=== PATIENT | female | born 1980 | race Caucasian/White ===

== ENCOUNTER 2025-06-19 06:53 | Outpatient (OUT) | payer OTHER, SELFPAY ==
--- OUTSIDE RECORDS SUMMARY | 2025-06-19 06:57 | XMS_ITS | Clinical Summary ---
Author Organization [facility] Address [address] [place] [address] Care Team Providers Care Production Line Worker Name Role Phone Ariel Beck' LADY Primary Care Provider [phone] Allergies Active AllergyReactionsCriticalityNoted DateCommentsErythromycinHives,Nausea and Uuzgekcr77/20/2015 Other Reaction(s): Unknown Medications MedicationSigDispense QuantityRefillsLast FilledStart DateEnd DateStatus MULTIPLE VITAMINS PO Take 1 tablet by mouth daily.Active Levonorgestrel 20 MCG/DAY 1 Intra Uterine Device by Intrauterine route once.Active Active Problems ProblemNoted DateDiagnosed DateEnchondroma of bone of hand, right01/13/2024 Finger stiffness, right01/13/2024Obesity (BMI 30.0-34.9)12/23/2023 Encounters DateTypeDepartmentCare AyolGlmtszcjtho55/17/2025Orders Only Genetics [address] [place] [address] Giulia Mccord, B[place] from Last 3 Months Family History Medical HistoryRelationNameCommentsDiabetesFatherJoe WoodType 2DiabetesMother Nelli WoodType 2Arthritis - RheumatoidOtherHeart Disease - OtherOtherRelation NameStatusCommentsFatherJoe WoodMotherEdith WoodOther Social History Tobacco UseTypesPacks/DayYears UsedDateSmoking Tobacco: NeverPassive Smoke Exposure: NeverSmokeless Tobacco: Never Tobacco Cessation:Counseling Given: Not Answered Alcohol UseStandard Drinks/WeekCommentsNever0 (1 standard drink = 0.6 oz pure alcohol)rarelyDepressionAnswerDate RecordedPHQ-9 Total Score (Interpretation of Total Score 1-4 = Minimal depression; 5-9 = Mild depression; 10-14 = Moderate depression; 15-19 = Moderately severe depression)Comments UnknownSex and Gender InformationValueDate RecordedSex Assigned at BirthNot on fileLegal DrxYzohyw97/06/2017 7:48 PM ESTGender VyzrurwpGtzcgt50/24/2024 6:55 PM ESTSexual TfurphenhfgXvcplufq28/24/2024 6:55 PM EST Last Filed Vital Signs Vital SignReadingTime TakenCommentsBlood Thxfdogb229/56012/21/2024 9:23 AM EDT Aveum449112/21/2024 9:23 AM PHVZcphkjqrhvm01.4 ??C (97.6 ??F)12/21/2024 9:23 AM EDTRespiratory Gcbk194912/21/2024 9:23 AM EDTOxygen Awlkxwkteg64%12/21/2024 9:23 AM EDTInhaled Oxygen Concentration--Wycscw32 kg (216 lb 1.6 oz)12/21/2024 9:23 AM FYWVgoarj802.1 cm (5' 5 )10/25/2024 9:57 AM EDTBody Mass Index35.9610/25/2024 9:57 AM EDT Plan of Treatment DateTypeDepartmentCare Team (Latest Contact Info)Gxcthtoyzin64/29/2026 9:20 AM EDTAppointment Imaging at [facility] [address] [place] [address] Rommel Silva MD [address] [place] [address] 12/20/2025 9:45 AM EDTOffice Visit Department of Orthopaedics at [facility] [address] [place] [address] Rommel Silva MD [address] [place] [address] Health MaintenanceDue DateLast DoneCommentsHEPATITIS C VIRUS KNATIKGMT91/08/1982 AMMTWMA72 1981HIV SCREENING HQZNGGWPUV16/08/1997HEP B VACCINE (1 of 3 - 19+ 3-dose series)2000PNEUMOCOCCAL VACCINE SERIES (1 of 2 - PCV)2000TDAP (ADULT)2000CERVICAL CANCER SCREENING HZDDDJSXIQ78/08/2003HPV VACCINE (1 - 3-dose SCDM series)2008LIPID SQLZJQMJJ86/08/2022MAMMOGRAM SCREENING DRPXUFFBYP33/07/006973/01/2024, 01/17/2023, 2COVID-19 VACCINE ( season)501/, 01/20/2021, 12/23/2020INFLUENZA VACCINE (#1)2025 Medical Devices ImplantedTypeAreaManufacturerDevice IdentifierShelf Expiration DateModel / Serial / LotHemostatic Bone 16g Montage Multi-Pack - [id number] Implanted:Qty: 1 on 12/28/2023 by Rommel Silva MD at ZPSQEGIIEN04/01/2026 [id number] Insurance Advance Directives For more information, please contact: [phone] (7:30 AM - 6PM [facility], Tuesday-Tuesday) * Full Code (Latest Code Status on File) Date ActivatedDate InactivatedComments12/28/2023 5:56 AM Care Teams Team MemberRelationshipSpecialtyStart DateEnd Date Nasreen Beck CNP [address] [place] [address] [address] [place] [address] PCP - GeneralCertified Nurse Practitioner12/23/23
--- OUTSIDE RECORDS SUMMARY | 2025-06-19 06:57 | XMS_ITS | Clinical Summary ---
Author Organization [facility] Address [address], [address] [place] [address] Care Team Providers Care Hydraulic Modeling Engineer Name Role Phone Ariel Beck EDILIA - VEGETABLE GROWER Primary Care Pr ovider Allergies Active AllergyReactionsCriticalityNoted XxadPntayzmdSxewtxvtwizqPrcez56/20/2015 Medications MedicationSigDispense QuantityRefillsLast FilledStart DateEnd DateStatus Multiple Vitamins-Minerals (MULTIVITAMIN PO) Take 1 tablet by mouth dailyActive levonorgestrel (MIRENA) IUD 52 mg 1 each by IntraUTERine route onceActive Active Problems Patient Care Coordination No te Formatting of this note migh t be different from the original. desires to continue mirena when due for a new one, likes amenorrhea/ cycle control, inserted 08/15/18 ProblemNoted DateDiagnosed DateChronic cqcvejnpkcw42/04/2022 Encounters DateTypeDepartmentCare BmudRkrgaisdnnh83/07/2025 10:15 AM EDTOffice Visit [facility] Part of [address] [place] [address] Letty Treadwell, EDILIA - CNM Encounter for annual routine gynecological examination (Primary Dx); Screening mammogram, encounter forfrom Last 3 Months Immunizations ImmunizationAdministration DatesNext DueCOVID-19, Inactive, MODERNA BLUE border, Primary or Immunocompromised, (age 12y+)08/14/2021,01/20/2021,12/23/2020 Influenza Vaccine, unspecified srqhoksdgkb03/04/2017 Family History Medical HistoryRelationNameCommentsDiabetesFatherHeart AttackMaternal GrandfatherHypertensionMaternal GrandmotherDiabetesMotherOtherOtherMat. second cousin breast cnacer. No family h/o ovarian cancer or DVT.Heart AttackPaternal GrandfatherRelationNameStatusCommentsFatherAliveMaternal GrandfatherDeceased Maternal GrandmotherDeceasedMotherAliveOtherOtherPaternal GrandfatherDeceased Paternal GrandmotherDeceasedSisterAlive Social History Tobacco UseTypesPacks/DayYears UsedDateSmoking Tobacco: FormerSmokeless Tobacco: Never Tobacco Cessation:Counseling Given: Not Answered Alcohol UseStandard Drinks/WeekCommentsNot Currently0 (1 standard drink = 0.6 oz pure alcohol)4 times a year sociallyHumiliation, Afraid, Rape, and Kick questionnaireAnswerDate RecordedWithin the last year, have you been afraid of your partner or ex-partner?No10/25/2023Within the last year, have you been humiliated or emotionally abused in other ways by your partner or ex-partner?No 10/25/2023Within the last year, have you been kicked, hit, slapped, or otherwise physically hurt by your partner or ex-partner?No10/25/2023Within the last year, have you been raped or forced to have any kind of sexual activity by your part ner or ex-partner?No10/25/2023Social Connection and Isolation PanelAnswerDate RecordedIn a typical week, how many times do you talk on the phone with family, friends, or neighbors?More than three times a week10/25/2023How often do you get together with friends or relatives?Three times a week10/25/2023How often do you attend mormonism or buddhist services?Never10/25/2023o you belong to any clubs or organizations such as mormonism groups, unions, fraternal or athletic groups, or school groups?Yes10/25/2023How often do you attend meetings of the clubs or organizations you belong to?More than 4 times per year10/25/2023re you , , , , never , or living with a partner? 10/25/2023UDIT-CAnswerDate RecordedQ1: How often do you have a drink containing alcohol?Monthly or less10/25/2023Q2: How many drinks containing alcohol do you have on a typical day when you are drinking?1 or Q3: How often do you have six or more drinks on one occasion?Never10/25/2023Overall Financial Resource Strain (CARDIA)AnswerDate RecordedHow hard is it for you to pay for the very basics like food, housing, medical care, and heating?Not hard at all 10/25/2023HQ-2AnswerDate RecordedPHQ-9 Total Bhxcw153Finshriners [facility] [place] of Occupational Health - Occupational Stress QuestionnaireAnswerDate RecordedDo you feel stress - tense, restless, nervous, or anxious, or unable to sleep at night because yourmind is troubled all the time - these days?Not at all 10/25/2023Exercise Vital SignAnswerDate RecordedOn average, how many days per week do you engage in moderate to strenuous exercise (like a brisk walk)?3 days 10/25/2023On average, how many minutes do you engage in exercise at this level? 50 min10/25/2023RAPARE - TransportationAnswerDate RecordedIn the past 12 months, has lack of transportation kept you from medical appointments or from getting medications?No10/25/2023In the past 12 months, has lack of transportation kept you from meetings, work, or from getting things needed for daily living?No10/25/2023Housing Stability Vital SignAnswerDate RecordedIn the last 12 months, was there a time when you were not able to pay the mortgage or rent on time?No10/25/2023Number of Places Lived in the Last YearNot on file 10/25/2023In the last 12 months, was there a time when you did not have a steady place to sleep or slept in ashelter (including now)?No10/25/2023Housing Stability Vital SignAnswerDate RecordedIn the last 12 months, was there a time when you were not able to pay the mortgage or rent on time?No04/30/2025In the past 12 months, how many times have you moved where you were living? At any time in the past 12 months, were you homeless or living in a alf (including now)?No04/30/2025Hunger Vital SignAnswerDate RecordedWithin the past 12 months, you worried that your food would run out before you got the money to buymore.Never true04/30/2025Within the past 12 months, the food you bought just didn't last and you didn't have money to get more.Never true04/30/2025PRAPARE - TransportationAnswerDate RecordedIn the past 12 months, has lack of transportation kept you from medical appointments or from getting medications?No 04/30/2025In the past 12 months, has lack of transportation kept you from meetings, work, or from getting things needed for daily living?No04/30/2025HC UtilitiesAnswerDate RecordedIn the past 12 months has the expresscoin, gas, oil, or water [employer] threatened to shut off services in your home?04/30/2025 Interpersonal Safety Domain Source: IP Abuse ScreeningAnswerDate RecordedRead- Only, Retired: Physical RfwveYvdqte67/28/2024ead-Only, Retired: Verbal Abuse Psssrm2711/20/2023ead-Only, Retired: Emotional oucabHfbygd95/28/2024ead-Only, Retired: Financial PrllfRmohtr07/28/2024ead-Only, Retired: Sexual abuseDenies 11/20/2023CommentsNoSex and Gender InformationValueDate RecordedSex Assigned at ZfyooGcukrc22/02/2022 9:08 AM EDTLegal FlsMdezss57/10/2013 12:36 PM ESTGender LeibejupOcgeyk22/02/2022 9:08 AM EDTSexual OrientationStraight 11/23/2021 9:08 AM EDT Last Filed Vital Signs Vital SignReadingTime TakenCommentsBlood Mbwzlgoc169/7804/30/2025 10:18 AM EDT Ugyvk9098 3:13 PM DXIQftingmvxai73.9 ??C (98.5 ??F)11/20/2023 6:46 PM EDTRespiratory Jkno568211/20/2023 6:46 PM EDTOxygen Zltjrvjezq04%11/20/2023 6:46 PM EDTInhaled Oxygen Concentration--Yhjrka79.2 kg (212 lb)04/30/2025 10:18 AM MYHGkwktz597.1 cm (5' 5 )04/30/2025 10:18 AM EDTBody Mass Index35.281 10:18 AM EDT Plan of Treatment DateTypeDepartmentCare Team (Latest Contact Info)Iozxwojhtwj67/18/2025 8:30 AM ESTAppointment [facility] [address] [id number] Routine-Lft Msg 10:45 AM EDTOffice Visit [facility] Part of [facility] [address] [place] [id number] Letty Treadwell, EDILIA - TRACEM [address] [facility] [address] [facility] [address] [place] [address] AnnualHealth MaintenanceDue DateLast DoneCommentsHepatitis C oowrtm1511/30/1999 DTaP/Tdap/Td vaccine (1 - Tdap)2000Hepatitis B vaccine (1 of 3 - 19+ 3- dose series)2000HPV (without or with Pap)11/30/2011Flu vaccine (#1) COVID-19 Vaccine ( season)501/, 01/20/2021, 1Breast cancer /01/2024, 01/17/2023, 12/23/2021, Additional history existsDepression Ekczmm48610/01/2025, 5Cervical cancer pocfpb8604/24/2027Pap smear/07/2023, 04/08/2021, 04/03/2020, Additional history pyzhowNthdvu37/06/556151/12/2023, 10/02/2022, 05/21/2021, Additional history existsHIV abyetgGwsrviwgh96/18/2008 A1C test (Diabetic or Prediabetic)Shgsicoxgekc50/06/2024, 10/02/2022, 05/21/2021, Additional history existsHPV vaccine (No Doses Required)Completed Hepatitis A vaccineAged OutNo longer eligible based on patient's age to complete this topicHib vaccineAged OutNo longer eligible based on patient's age to complete this topicMeningococcal (ACWY) vaccineAged OutNo longer eligible based on patient's age to complete this topicMeningococcal B vaccineAged OutNo longer eligible based on patient's age to complete this topicPneumococcal 0-49 years VaccineAged OutNo longer eligible based on patient's age to complete this topic Polio vaccineAged OutNo longer eligible based on patient's age to complete this topicVaricella vaccineDiscontinued Procedures Procedure NamePriorityDate/TimeAssociated DiagnosisCommentsGYN CYTOLOGYRoutine 04/24/2024 12:00 AM EDT RADHA LISA DIGITAL SCREEN QOZSHBTEGFlnmnnh64/07/2024 5:36 PM EDT Screening mammogram for high-risk patient LIPID PANEL W/ REFLEX DIRECT DOYHexctrl48/28/2021 9:34 AM EDT HEMOGLOBIN V3TVthtjsv30/28/2021 9:34 AM EDT from Last 3 Months or Most Recently Relevant to Health Maintenance Results * DEMURRAGE WORKER Cytology (04/24/2024 12:00 AM EDT)ComponentValueRef RangeTest Method Analysis TimePerformed AtPathologist SignatureCytology ReportPath Number: [id number] DIAGNOSIS Imaged ThinPrep Pap - Cervical (1 monolayer slide): Specimen Adequacy: ? Satisfactory for evaluation. ? - Endocervical/transformation zone component present. Descriptive Diagnosis: ? Negative for intraepithelial lesion or malignancy. Fungal organisms morphologically consistent with Sloane species. Reactive cellular changes. Cytotech Screener: ??EY Electronically Signed Out ? Jorge Lopes. /05/03/2024 Source of Specimen: A: Imaged ThinPrep Pap - Cervical (1 monolayer slide) HPV Reflex?......................HPV if ASCUS Clinical History Implant Z12.4 Encounter for screening for malignant neoplasm of cervix Processing Lab: [address] [address] Interpretation performed at [address] [address] This Pap Test has been evaluated with the assistance of the ThinPrep Pap Test Imaging System. The Pap smear is a screening test primarily for squamous epithelial lesions, which is subject to both false negative and false positive results. Your patient should be reminded to consult you immediately if she experiences any suspicious signs or symptoms, regardless of her Pap smear result. GYNECOLOGIC CYTOLOGY REPORT Patient Name: VALERIO TURNER [facility] Rec: [id number] [facility] ??[facility] ANATOMIC PATHOLOGY [address] [place] [address]. ??[place], [place] [address] bon [facility] LABSSpecimen (Source)Anatomical Location / LateralityCollection Method / VolumeCollection TimeReceived Time CERVICAL QLXYFGCL88 8:07 AM EDT Narrative Authorizing ProviderResult TypeResult StatusSusan Chen Treadwell APRN - CNM PATHOLOGY/CYTOLOGY ORDERABLESFinal ResultPerforming OrganizationAddress City/State/ZIP CodePhone Number [facility] [address] [place] [address] [facility] * RADHA LISA DIGITAL SCREEN BILATERAL (02/29/2024 5:36 PM EDT)Anatomical Region LateralityModalityBreastBilateralMammographySpecimen (Source)Anatomical Location / LateralityCollection Method / VolumeCollection TimeReceived Time 03/01/2024 2:11 PM EDT Impressions 03/01/2024 2:18 PM EDT No evidence of malignancy. Advise annual screening mammography. BI-RADS 1 BIRADS: BIRADS - CATEGORY 1 Negative, no evidence of malignancy. ??Normal interval follow-up is recommended in 12 months. OVERALL ASSESSMENT - NEGATIVE A letter of notification will be sent to the patient regarding the results. The [employer] recommends annual mammograms for women 40 years and older. Narrative 03/01/2024 2:18 PM EDT EXAMINATION: SCREENING DIGITAL BILATERAL MAMMOGRAM WITH TOMOSYNTHESIS, 02/29/2024 TECHNIQUE: Screening mammography was performed with tomosynthesis including MLO and CC views of the bilateral breasts. Computer aided detection was used for the interpretation of this exam. COMPARISON: 17 January 2023; 23 December 2021 HISTORY: Screening. Negative family history of breast cancer. ??15 year history of oral contraception. ??No hormonal replacement therapy or breast interventions. FINDINGS: Both breasts are composed of heterogeneously dense parenchyma. ??No skin thickening, nipple contour changes, suspicious calcifications, suspicious masses, areas of architectural distortion or significant interval changes are noted. Authorizing ProviderResult TypeResult StatusNoel Ayana Beck SENIOR SYSTEMS ARCHITECT - CNPIMG MAMMOGRAPHY ORDERABLESFinal Result from Last 3 Months or Most Recently Relevant to Health Maintenance Insurance Care Teams Team MemberRelationshipSpecialtyStart DateEnd Date Ariel Beck, EDILIA - VEGETABLE GROWER [address] [place] [address], [facility] [address] [place] [phone] PCP - GeneralNurse Practitioner, Kyvseh43/30/18
--- OUTSIDE RECORDS SUMMARY | 2025-06-19 06:57 | XMS_ITS | Patient Health Record ---
Author Organization [facility] Address [address] [place] [address] Care Team Providers Care Postal Superintendent Name Role Phone Andrew Treadwell [phone] Allergies Allergen (clinical drug ingredient) Drug/Non Drug Allergy documented on EMR Reaction Allergy Type Onset Date Status erythromycinUnknownDrug AllergyActive Reason For Referral No Information Social History Tobacco Use: Social History Observation Description Date Details (start date - stop date) Never Smoker NA - NA Smoking History Question Answer Notes Smoking Status NonSmoker Smoking StatusNonSmokerAUDIT-C (Standard) Question Answer Notes Did you have a drink containing alcohol in the p ast year? Yes Did you have a drink containing alcohol in the past year?YesDid you have a drink containing alcohol in the past year?YesHow often did you have six or more drinks on one occasion in the past year?Never (0 point)How many drinks did you have on a typical day when you were drinking in the past year?1 or 2 drinks (0 point)How often did you have a drink containing alcohol in the past year?Monthly or less (1 point)Tobacco Control (Standard) Question Answer Notes Tobacco use: Nonsmoker Problems Problem Type SNOMED Code ICD Code Onset Dates Problem Status W/U Status Risk Notes Problem Disorder of skin AND /OR subcutaneous tissue (54624341) Lesion of finger (L98.9) ActiveconfirmedProblemClosed nondisplaced fracture of middle phalanx of right index finger, initial encounter (S62.650A)ActiveconfirmedProblemNondisplaced fracture of middle phalanx of right index finger, subsequent encounter for fracture with routine healing (S62.650D)Activeconfirmed Plan Of Treatment Pending Test Test Name Order Date [place] [id number] 11/23/19 24 Insurance Providers Payer Name Payer Address Payer Phone Subscriber Number Group Number Insured Name Patient Relationship to Insured Coverage Start Date Coverage End Date [employer] [address] [place] [id number] VALERIO GRACE Self - patient is the insured Medical (General) History Medical History History ICD Code CPAP Machine:: No DRUG ALLERGIES: YesHealthcare worker: YesLatex Allergy: NoHave you been in close contact with someone who has had MRSA within the last year?: NoHave you ever had or presently have MRSA?: NoHave you been seen by a dentist in the last year?: YesDo you have any dental problems i.e. Broken, loose, or chipped teeth, absess, gum disease?: No
--- NOTE | 2025-06-19 07:00 | MM_ITS ---
Patient Name: VALERIO GRACE MR#: [id number] : 1980 Exam Date: 06/19/2025 Ordering Doctor: DR THAO PARSONS [facility] RAD[facility]OLOG[facility] REPORT PROCEDURE: MM TOMOSYNTHESIS SCREENING BI COMPARISON: MM TOMOSYNTHESIS SCREENING BI, 02/29/2024. MM TOMOSYNTHESIS SCREENING BI, 01/17/2023. MM TOMOSYNTHESIS SCREENING BI, 12/23/2021. INDICATIONS: Screening for malignant neoplasm of breast Calculator Name NCI Breast Cancer Risk Assessment Tool 5 Year Breast Cancer Risk 0.60% Lifetime Breast Cancer Risk 8.00% Personal Breast Cancer No Personal Ovarian Cancer No Treatments None Family Cancers None LOCATION: [facility] BREAST COMPOSITION: There are scattered areas of fibroglandular density. FINDINGS: DIAGNOSTIC CATEGORY 1--NEGATIVE. RIGHT BREAST: No significant suspicious finding. LEFT BREAST: No significant suspicious finding. RECOMMENDATIONS: ROUTINE MAMMOGRAM AND CLINICAL EVALUATION IN 12 MONTHS. Dictated by: Stoney Zaragoza DO on 06/19/2025 at 10:45 Approved by: Stoney Zaragoza DO on 06/19/2025 at 10:46
== END 2025-06-19 06:54 | disposition home or self-care (01) ==
LOC: MAMMO 06:53
PROVIDERS: Visit Provider Midwife
DX: Z12.31 Encounter for screening mammogram for malignant neoplasm of breast (principal)
CPT/HCPCS: 77063; 77067